=== PATIENT | female | born 1990 | race Caucasian/White ===

== ENCOUNTER 2024-07-04 16:39 | Emergency (ER) | payer SELFPAY | END 2024-07-04 19:13 | disposition home or self-care (01) | LOC: CSHERS 16:39 | DX: O21.9 Vomiting of pregnancy, unspecified (principal); Z87.891 Personal history of nicotine dependence; Z3A.13 13 weeks gestation of pregnancy | CPT/HCPCS: 36415; 76856; 83690; 86900; 86901 ==